=== PATIENT | female | born 1975 | race Caucasian/White ===

== ENCOUNTER 2021-03-14 17:15 | Emergency (ER) | payer OTHER ==
[2021-03-14 18:29] LABS: Absolute Lymphocytes (CBC) 0.9 K/uL (0.7-4.9); Basophils % 0.5 % (0-1.3); Hematocrit 44.3 % (36.0-45.0); Lymphocytes % 15.8 % (15.3-44.8); MPV 7.9 fL (7.6-11.3); RBC Red Blood Cell Count 5.08 M/uL (3.86-4.86)
[2021-03-14 18:48] LABS: Protime INR 1.09
[2021-03-14 18:50] LABS: ALT/SGPT 32 U/L (12-78); AST/SGOT 22 U/L (15-37); Albumin 3.5 g/dL (3.4-5.0); Alkaline Phosphatase 75 U/L (45-117); BUN Blood Urea Nitrogen 5 mg/dL (7-18); Bicarbonate 24 mmol/L (21-32); Bilirubin Direct < 0.1 mg/dL (0-0.2); Bilirubin Total 0.3 mg/dL (0.2-1.0); Creatine Phosphokinase 28 U/L (26-192); Glucose Level 114 mg/dL (74-106); Lipase 75 U/L (73-393); NT PRO-BNP 16 pg/mL (<125); Potassium 3.1 mmol/L (3.5-5.1); Protein, Total 7.2 g/dL (6.4-8.2); Sodium Level 138 mmol/L (136-145); Troponin (Emerg Dept Use Only) < 0.02 ng/mL (0.0-0.045)
[2021-03-14 18:54] LABS: CKMB Creatine Kinase MB < 1.0 ng/mL (1.0-3.6)
--- NOTE | 2021-03-14 19:03 | EDPHYS ---
Physician Documentation [facility] Name: Jennifer Canela Age: 45 yrs Sex: Female : 1975 Arrival Date: 03/14/2021 Time: 17:34 Bed 7 Private MD: ED Physician Damián Santacruz HPI: 03/14 19:12 This 45 yrs old Unknown Female presents to ER via Ambulatory with complaints of tw4 Vomiting, Shortness Of Breath, Covid+. 19:12 The patient presents to the emergency department with nausea, vomiting. Onset: The tw4 symptoms/episode began/occurred today. Associated signs and symptoms: Pertinent positives: sob. The patient has not experienced similar symptoms in the past. 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 Flu vaccine is not up to date. - Social history:: Smoking status: Patient denies any tobacco usage or history of. ROS: 19:12 Constitutional: Negative for fever, chills, and weight loss, Eyes: Negative for injury, tw4 pain, redness, and discharge, Cardiovascular: Negative for chest pain, palpitations, and edema, Back: Negative for injury and pain, MS/Extremity: Negative for injury and deformity. 19:12 Respiratory: Positive for shortness of breath. 19:12 Abdomen/GI: Positive for nausea, vomiting, and diarrhea. Exam: 19:12 Constitutional: This is a well developed, well nourished patient who is awake, alert, tw4 and in no acute distress. Head/Face: Normocephalic, atraumatic. Chest/axilla: Normal chest wall appearance and motion. Nontender with no deformity. No lesions are appreciated. Cardiovascular: Regular rate and rhythm with a normal S1 and S2. No gallops, murmurs, or rubs. Normal PMI, no JVD. No pulse deficits. Respiratory: Lungs have equal breath sounds bilaterally, clear to auscultation and percussion. No rales, rhonchi or wheezes noted. No increased work of breathing, no retractions or nasal flaring. Abdomen/GI: Soft, non-tender, with normal bowel sounds. No distension or tympany. No guarding or rebound. No evidence of tenderness throughout. Back: No spinal tenderness. No costovertebral tenderness. Full range of motion. Skin: Warm, dry with normal turgor. Normal color with no rashes, no lesions, and no evidence of cellulitis. MS/ Extremity: Pulses equal, no cyanosis. Neurovascular intact. Full, normal range of motion. Neuro: Awake and alert, GCS 15, oriented to person, place, time, and situation. Cranial nerves II-XII grossly intact. Motor strength 5/5 in all extremities. Sensory grossly intact. Cerebellar exam normal. Normal gait. Vital Signs: 17:40 BP 123 / 92; Pulse 96; Resp 18 S; Temp 97.1(TE); Pulse Ox 96% on R/A; Weight 70.31 kg ca1 (R); Height 5 ft. 5 in. (165.10 cm) (R); Pain 2/10; 18:20 BP 91 / 67; Pulse 67; Resp 20; Temp 98.6(O); Pulse Ox 97% on R/A; tr6 17:40 Body Mass Index 25.79 (70.31 kg, 165.10 cm) ca1 MDM: 17:49 Patient medically screened. tw4 19:12 Data reviewed: vital signs, nurses notes. Data interpreted: Pulse oximetry: tw4 Interpretation: normal. Counseling: I had a detailed discussion with the patient and/or guardian regarding: the historical points, exam findings, and any diagnostic results supporting the discharge/admit diagnosis. Special discussion: I discussed with the patient/guardian in detail that at this point there is no indication for admission to the hospital. It is understood, however, that if the symptoms persist or worsen the patient needs to return immediately for re-evaluation. 03/14 17:52 Order name: BMP 03/14 17:52 Order name: Blood Culture Adult (2) 03/14 17:52 Order name: CBC with Diff 03/14 17:52 Order name: CPK 03/14 17:52 Order name: Ckmb 03/14 17:52 Order name: Hepatic Function 03/14 17:52 Order name: Lipase 03/14 17:52 Order name: Magnesium 03/14 17:52 Order name: NT PRO-BNP [facility] 03/14 17:52 Order name: PT-INR [facility] 03/14 17:52 Order name: Ptt, Activated [facility] 03/14 17:52 Order name: Troponin (emerg Dept Use Only) [facility] 03/14 17:53 Order name: Blood Culture [facility] 03/14 18:40 Order name: Glucose, Ancillary Testing [facility] 03/14 17:52 Order name: XRAY CXR (1 view) [facility] 03/14 17:52 Order name: Cardiac monitoring; Complete Time: 18:43 [facility] 03/14 17:52 Order name: IV Saline Lock; Complete Time: 18:31 [facility] 03/14 17:52 Order name: Labs collected and sent; Complete Time: 18:31 [facility] 03/14 17:52 Order name: O2 Per Protocol; Complete Time: 18:31 [facility] 03/14 17:52 Order name: O2 Sat Monitoring; Complete Time: 18:31 tw4 Administered Medications: 18:31 Drug: NS 0.9% 1000 ml Route: IV; Rate: 1 bolus; Site: right antecubital; tr6 Disposition Summary: 03/14/21 19:03 Discharge Ordered Location: Home tw4 Problem: new tw4 Symptoms: have improved tw4 Condition: Stable tw4 Diagnosis - Coronavirus infection, unspecified tw4 Followup: tw4 - With: Private Physician - When: Upon discharge from the Emergency Department - Reason: Recheck today's complaints, Continuance of care, Re-evaluation by your physician Discharge Instructions: - Discharge Summary Sheet tw4 - COVID-19 tw4 Forms: - Medication Reconciliation Form tw4 - Thank You Letter tw4 - Antibiotic Education tw4 - Prescription Opioid Use tw4 Prescriptions: - Medrol (Kenneth) 4 mg Oral Tablets, Dose Pack - take 1 tablet by ORAL route as directed - follow package instructions; 1 tw4 packet; Refills: 0, Product Selection Permitted - ProAir HFA - inhale 2 puff by NEBULIZATION route 4 times per day; 1 Pump; Refills: 0, tw4 Product Selection Permitted - Zithromax 200 mg/5 ml Oral Suspension for Reconstitution - take 7.5 milliliters by ORAL route one time for 1 day - then take (5mg/kg/day) tw4 3.8 milliliters by oral route on days 2,3,4, and 5.; 24 milliliter; Refills: 0, Product Selection Permitted Signatures: Dispatcher [employer] Damián Young MD MD tw4 Taty Sigala RN RN ca1 Tayler Manley RN RN tr6 Corrections: (The following items were deleted from the chart) 17:43 17:42 Allergies: No Known Allergies; ca1 ca1
--- NOTE | 2021-03-14 19:03 | ER ---
Nurse's Notes [facility] Name: Jennifer Canela Age: 45 yrs Sex: Female : 1975 Arrival Date: 03/14/2021 Time: 17:34 Bed 7 Private MD: Diagnosis: Coronavirus infection, unspecified Presentation: 03/14 17:40 Chief complaint: Patient states: Covid+ 03/11/2021. S/S getting worse. Weakness, N/V/D, ca1 severe cough, SOB, muscle aches and joint pains. Coronavirus screen: Client reports previous positive COVID test result. Date of collection: March 11, 2021 Staff notified of need for isolation. Ebola Screen: Patient negative for fever greater than or equal to 101.5 degrees Fahrenheit, and additional compatible Ebola Virus Disease symptoms Patient denies exposure to infectious person. Patient denies travel to an Ebola-affected area in the 21 days before illness onset. No symptoms or risks identified at this time. Initial Sepsis Screen: Does the patient meet any 2 criteria? No. Patient's initial sepsis screen is negative. Does the patient have a suspected source of infection? No. Patient's initial sepsis screen is negative. Risk Assessment: Do you want to hurt yourself or someone else? Patient reports no desire to harm self or others. Onset of symptoms was March 11, 2021. 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 Flu vaccine is not up to date. - Social history:: Smoking status: Patient denies any tobacco usage or history of. Screenin:43 Abuse screen: Denies threats or abuse. Denies injuries from another. Nutritional tr6 screening: No deficits noted. Tuberculosis screening: No symptoms or risk factors identified. Fall Risk None identified. Assessment: 18:41 General: Appears distressed, uncomfortable, Behavior is calm, cooperative, appropriate tr6 for age. Pain: Complains of pain in c/o generalized body aches. Neuro: No deficits noted. Cardiovascular: No deficits noted. Respiratory: Denies shortness of breath Parent/caregiver reports the patient having cough that is non-productive. GI: Abdomen is flat, Bowel sounds present X 4 quads. Abd is soft and non tender Reports nausea, vomiting. : No deficits noted. EENT: No deficits noted. Derm: Skin is intact, Skin is clammy. Musculoskeletal: Reports weakness in generalized weakness. 18:56 Reassessment: Patient and/or family updated on plan of care and expected duration. Pain tr6 level reassessed. Vital Signs: 17:40 BP 123 / 92; Pulse 96; Resp 18 S; Temp 97.1(TE); Pulse Ox 96% on R/A; Weight 70.31 kg ca1 (R); Height 5 ft. 5 in. (165.10 cm) (R); Pain 2/10; 18:20 BP 91 / 67; Pulse 67; Resp 20; Temp 98.6(O); Pulse Ox 97% on R/A; tr6 17:40 Body Mass Index 25.79 (70.31 kg, 165.10 cm) ca1 ED Course: 17:34 Patient arrived in ED. bp1 17:42 Triage completed. ca1 17:42 Arm band placed on right wrist. ca1 17:49 Damián Santacruz MD is Attending Physician. tw4 18:05 Tayler Manley, ALYSSA is Primary Nurse. tr6 18:31 Inserted saline lock: 18 gauge in right antecubital area, using aseptic technique. tr6 Blood collected. 18:43 Resting quietly. Appears to be sleeping. Awaiting lab results. tr6 18:43 Patient has correct armband on for positive identification. Bed in low position. Call tr6 light in reach. Side rails up X2. silverware etcher on. Pulse ox on. NIBP on. Door closed. Noise minimized. Visitors limited. Lights dimmed. Moved to private room. Warm blanket given. 18:43 No provider procedures requiring assistance completed. tr6 18:57 XRAY CXR (1 view) In Process Unspecified. EDMS Administered Medications: 18:31 Drug: NS 0.9% 1000 ml Route: IV; Rate: 1 bolus; Site: right antecubital; tr6 Outcome: 19:03 Discharge ordered by . tw4 19:31 Patient left the ED. lp1 Signatures: Dispatcher [employer] EDMS Paty Huff RN RN lp1 Damián Santacruz MD MD tw4 Taty Sigala RN RN ca1 Mariela Hooker Tiffany, RN RN tr6 Corrections: (The following items were deleted from the chart) 17:43 17:42 Allergies: No Known Allergies; ca1 ca1 18:57 10:23 BP 91 / 67; Pulse 67bpm; Resp 20bpm; Pulse Ox 97% RA; Temp 98.6F Oral; tr6 tr6
--- NOTE | 2021-03-14 19:34 | RAD REPORT ---
EXAM DESCRIPTION: Maureen Single View03/14/2021 6:57 pm CLINICAL HISTORY: Shortness of breath COMPARISON: none FINDINGS: The lungs appear clear of acute infiltrate. The heart is normal size IMPRESSION: No acute abnormalities displayed
[2021-03-14 19:48] VITALS: BP 91/67; TEMP 98.6; O2SAT 97
== END 2021-03-14 19:31 | disposition home or self-care (01) ==
LOC: ER 17:15
DX: U07.1 COVID-19 (principal); E03.9 Hypothyroidism, unspecified
CPT/HCPCS: 36415; 71045; 80048; 80076; 82550; 82553; 82947; 83690; 83735; 83880; 84484; 85025; 85610; 85730; 87040; 99284

== ENCOUNTER 2021-03-17 08:48 | Emergency (ER) | payer OTHER ==
[2021-03-17 09:46] LABS: Absolute Lymphocytes (CBC) 0.9 K/uL (0.7-4.9); Basophils % 0.4 % (0-1.3); Hematocrit 39.1 % (36.0-45.0); Lymphocytes % 8.2 % (15.3-44.8); MPV 7.6 fL (7.6-11.3); RBC Red Blood Cell Count 4.53 M/uL (3.86-4.86)
[2021-03-17 09:50] LABS: Protime INR 1.05
[2021-03-17 10:09] LABS: ALT/SGPT 27 U/L (12-78); AST/SGOT 19 U/L (15-37); Albumin 3.2 g/dL (3.4-5.0); Alkaline Phosphatase 64 U/L (45-117); BUN Blood Urea Nitrogen 6 mg/dL (7-18); Bicarbonate 27 mmol/L (21-32); Bilirubin Direct < 0.1 mg/dL (0-0.2); Bilirubin Total 0.3 mg/dL (0.2-1.0); Ferritin 118.3 ng/mL (8-388); Glucose Level 90 mg/dL (74-106); Lipase 147 U/L (73-393); Potassium 3.2 mmol/L (3.5-5.1); Protein, Total 7.3 g/dL (6.4-8.2); Sodium Level 140 mmol/L (136-145); Troponin (Emerg Dept Use Only) < 0.02 ng/mL (0.0-0.045)
[2021-03-17] MEDS ORDERED: dexAMETHasone 10 MG/ML VIAL ONE (10:27)
[2021-03-17] MEDS ORDERED: NA CHLORIDE 0.9% 500 ML ONE (10:28)
[2021-03-17] MEDS ORDERED: LEVALBUTEROL 1.25 MG/3 ML NEB ONE (10:28)
[2021-03-17 10:41] LABS: Blood Morphology Comment NOT SEEN (NOT SEEN); Platelet Estimate ADEQ
[2021-03-17] MEDS ORDERED: NA CHLORIDE 0.9% 100 ML ONE (10:45)
[2021-03-17] MEDS ORDERED: KCL 20 MEQ/100 mL IVPB 20 MEQ/100 ML BAG IV ONE (10:45)
--- NOTE | 2021-03-17 11:03 | RAD REPORT ---
EXAM DESCRIPTION: RAD - Chest Single View - 03/17/2021 10:07 am CLINICAL HISTORY: Congestion;Cough COMPARISON: March 14 TECHNIQUE: AP portable chest image was obtained 03/17/2021 10:07 am . FINDINGS: Lung volumes are diminished compared to the prior study. There is increased opacification at each lung base slightly worse on the left. Finding is partly due to atelectasis. Lung base infiltr ates, particularly the left, suspected but not definitive. No mid or upper lung field acute finding. No failure or volume overload. Heart and vasculature are normal. No measurable pleural effusion and n o pneumothorax. No acute bony abnormality seen. No acute aortic findings suspected. IMPRESSION: Shallow inspiration exam suspicious for left base infiltrate. Correlation is needed with clinical presentation.
--- NOTE | 2021-03-17 11:58 | RAD REPORT ---
EXAM DESCRIPTION: CT - Chest For Pe Angio - 03/17/2021 11:43 am CLINICAL HISTORY: COUGH , COVID positive COMPARISON: No comparisons TECHNIQUE: Dynamically enhanced 3 mm thick images of the chest were obtained during administration o f approximately 150mL Isovue 370 IV contrast. Coronal and oblique MIP reconstruction images were gene rated and reviewed. Exam utilizes a protocol to evaluate the pulmonary arterial tree. All CT scans are performed using dose optimization technique as appropriate and may include automated exposure control or mA/KV adjustment according to patient size. FINDINGS: No pulmonary emboli are identified. The aorta as imaged shows no acute or suspicious finding. No pericardial thickening or effusion. A [id number] amount of peripheral ground-glass opacification present throughout the lung zapata . This is a typical presentation for COVID-19 pneumonia. No cavitation or mass. No pleural effusion o r pleural thickening. A few small mediastinal and hilar reactive type lymph nodes are present. No suspicious finding. No en dobronchial lesions are present. No chest wall masses or abnormal axillary lymphadenopathy. No cardio megaly or pericardial effusion. IMPRESSION: No pulmonary emboli identified. Mild to moderate COVID-19 pneumonia pattern.
[2021-03-17] MEDS ORDERED: CEFTRIAXONE/SWI 1gm 1 GM/10 ML SYR ONE (12:28)
[2021-03-17] MEDS ORDERED: AZITHROMYCIN 250 MG TAB ONE (12:28)
--- NOTE | 2021-03-17 12:38 | EKG ---
Test Date: 2021-03-17 Test Time: 09:44:01 Mobile Home Lot Utility Worker: ERICK MEASUREMENT RESULTS: Intervals: Rate: 76 OR: 152 QRSD: 86 QT: 378 QTc: 425 [place]: P: -3 OR: 152 QRS: 53 T: 8 INTERPRETIVE STATEMENTS: Normal sinus rhythm Normal ECG No previous ECG available for comparison Electronically Signed On 03-17-21 12:37:12 CDT by Christian Bonilla
--- NOTE | 2021-03-17 15:33 | ER ---
Nurse's Notes [facility] Name: Jennifer Canela Age: 45 yrs Sex: Female : 1975 Arrival Date: 03/17/2021 Time: 08:52 Bed 5 Private MD: Clayton Trujillo Diagnosis: Other pneumonia, unspecified organism;Viral pneumonia, unspecified;SARS/COVID Presentation: 03/17 08:57 Chief complaint: Patient states: COVID+ since March 12, was seen here Monday , had IV iw fluids, now is having cough, SOB, increasing weakness, diarrhea, fever. Coronavirus screen: cough unrelated to allergies, diarrhea, fatigue, fever, nausea, shortness of breath, Client reports previous positive COVID test result. Ebola Screen: Patient negative for fever greater than or equal to 101.5 degrees Fahrenheit, and additional compatible Ebola Virus Disease symptoms Patient denies exposure to infectious person. Patient denies travel to an Ebola-affected area in the 21 days before illness onset. No symptoms or risks identified at this time. Initial Sepsis Screen: Does the patient meet any 2 criteria? No. Patient's initial sepsis screen is negative. Does the patient have a suspected source of infection? No. Patient's initial sepsis screen is negative. Risk Assessment: Do you want to hurt yourself or someone else? Patient reports no desire to harm self or others. Onset of symptoms was March 12, 2021. 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 - Social history:: Smoking status: Patient denies any tobacco usage or history of. Screenin:57 Abuse screen: Denies threats or abuse. Denies injuries from another. Nutritional jl7 screening: No deficits noted. Tuberculosis screening: No symptoms or risk factors identified. Fall Risk IV access (20 points). Total Wilson Fall Scale indicates No Risk (0-24 pts). Assessment: 09:05 General: Appears in no apparent distress. uncomfortable, ill, Behavior is cooperative, jl7 anxious. Pain: Denies pain. Neuro: Level of Consciousness is awake, alert, obeys commands, Oriented to person, place, time, situation. Cardiovascular: Patient's skin is warm and dry. Respiratory: Airway is patent Respiratory effort is even, unlabored, Respiratory pattern is regular, symmetrical. Derm: Skin is pink, warm \\T\\ dry. 10:18 Reassessment: Patient appears in no apparent distress at this time. No changes from vg1 previously documented assessment. Patient and/or family updated on plan of care and expected duration. Pain level reassessed. Patient is alert, oriented x 3, equal unlabored respirations, skin warm/dry/pink. Patient denies pain at this time. Musculoskeletal: Circulation, motion, and sensation intact. 11:06 Reassessment: Prior to ambulating pt, pts O2 was 93% RA, during ambulation pt O2 was vg1 91% RA. When returned to room pt stated "I feel a little winded". Pt O2 at rest is 93% RA. Provider notified. 12:17 Reassessment: Patient appears in no apparent distress at this time. Patient and/or vg1 family updated on plan of care and expected duration. Pain level reassessed. Patient is alert, oriented x 3, equal unlabored respirations, skin warm/dry/pink. 13:45 Reassessment: Patient appears in no apparent distress at this time. Patient and/or vg1 family updated on plan of care and expected duration. Pain level reassessed. Patient is alert, oriented x 3, equal unlabored respirations, skin warm/dry/pink. Patient denies pain at this time. 15:03 Reassessment: Patient appears in no apparent distress at this time. No changes from vg1 previously documented assessment. Patient is alert, oriented x 3, equal unlabored respirations, skin warm/dry/pink. Vital Signs: 08:57 BP 136 / 88; Pulse 76; Resp 18; Temp 99.4; Pulse Ox 92% on R/A; Weight 68.04 kg; Height iw 5 ft. 5 in. (165.10 cm); 09:57 BP 138 / 95; Pulse 78; Resp 19; Pulse Ox 93% ; jl7 11:08 BP 133 / 83; Pulse 82; Resp 20; Pulse Ox 94% on R/A; vg1 12:18 BP 141 / 88; Pulse 80; Resp 18; Pulse Ox 92% on R/A; vg1 13:45 BP 142 / 86; Pulse 78; Resp 16; Pulse Ox 95% on R/A; vg1 14:15 BP 142 / 95; Pulse 77; Resp 18; Pulse Ox 95% on R/A; vg1 15:49 BP 150 / 86; Pulse 70; Resp 18; Pulse Ox 95% on R/A; vg1 08:57 Body Mass Index 24.96 (68.04 kg, 165.10 cm) iw ED Course: 08:52 Patient arrived in ED. as 08:52 Clayton Trujillo DO is Private Physician. as 08:59 Marcos Mantilla MD is Attending Physician. kdr 08:59 Triage completed. iw 09:00 Arm band placed on. iw 09:09 Courtney Paz, RN is Primary Nurse. jl7 09:20 First set of blood cultures drawn. Missed attempt(s): 20 gauge in right antecubital jl7 area. Bleeding controlled, band aid applied, catheter tip intact. 09:31 Inserted saline lock: 22 gauge in left antecubital area, using aseptic technique. Blood jl7 collected. 09:31 Initial lab(s) drawn, by me, sent to lab. Second set of blood cultures drawn by me. jl7 09:34 Flu and/or RSV swab sent to lab. Strep swab sent to lab. jl7 09:57 Patient has correct armband on for positive identification. Bed in low position. Call jl7 light in reach. Side rails up X 1. rn surgery on. Pulse ox on. NIBP on. 10:07 CXR XRAY In Process Unspecified. EDMS 11:43 CT Chest For PE Angio In Process Unspecified. EDMS 12:38 Repeat lab(s) drawn. by me, sent to lab. vg1 15:32 Clayton Trujillo DO is Referral Physician. kdr 15:50 No provider procedures requiring assistance completed. IV discontinued, intact, vg1 bleeding controlled, No redness/swelling at site. Pressure dressing applied. Administered Medications: 10:13 Drug: NS 0.9% 500 ml Route: IV; Rate: bolus; Site: left antecubital; vg1 11:00 Follow up: IV Status: Completed infusion; IV Intake: 500ml vg1 10:14 Drug: Dexamethasone 10 mg Route: IVP; Site: left antecubital; vg1 11:00 Follow up: Response: No adverse reaction vg1 10:15 Drug: Xopenex (levalbuterol) (3) 1.25 mg Route: Inhalation; vg1 11:00 Follow up: Response: No adverse reaction; Marked relief of symptoms vg1 11:04 Drug: Potassium Chloride 10 mEq Route: IV; Rate: calculated rate; Site: left vg1 antecubital; 15:22 Follow up: Response: No adverse reaction; IV Status: Completed infusion vg1 12:10 Drug: Rocephin - (cefTRIAXone) 1 grams Route: IVPB; Infused Over: 30 mins; Site: left vg1 antecubital; 13:00 Follow up: Response: No adverse reaction; IV Status: Completed infusion vg1 12:18 Drug: Zithromax (azithromycin) 500 mg Route: PO; vg1 15:22 Follow up: Response: No adverse reaction vg1 Intake: 11:00 IV: 500ml; Total: 500ml. vg1 Outcome: 15:33 Discharge ordered by . kdr 15:50 Discharged to home ambulatory, with family. vg1 15:50 Condition: stable 15:50 Discharge instructions given to patient, Instructed on discharge instructions, follow up and referral plans. medication usage, Demonstrated understanding of instructions, follow-up care, medications, Prescriptions given X 1. 15:50 Patient left the ED. vg1 Signatures: Dispatcher [employer] EDMS Marcos Mantilla MD MD kdr Martinez, Amelia as Williams, Irene, Courtney Palencia RN, RN RN jl7 Cheryl Cárdenas RN RN vg1 Corrections: (The following items were deleted from the chart) 09:57 09:05 BP 138 / 95; Pulse 78bpm; Resp 19bpm; Pulse Ox 93%; seymour ahuja
--- NOTE | 2021-03-17 15:33 | EDPHYS ---
Physician Documentation [facility] Name: Jennifer Canela Age: 45 yrs Sex: Female : 1975 Arrival Date: 03/17/2021 Time: 08:52 Bed 5 Private MD: Ronnie [facility] ED Physician Marcos Mantilla HPI: 03/17 10:17 This 45 yrs old Female presents to ER via Wheelchair with complaints of kdr covid+, symptoms worsening. 10:17 The patient has shortness of breath at rest, with light activity. Onset: The kdr symptoms/episode began/occurred gradually, 10 day(s) ago. Duration: The symptoms are continuous, and are steadily getting worse. The patient's shortness of breath is aggravated by coughing, exertion, light activity, is alleviated by nothing. Associated signs and symptoms: Pertinent positives: non-productive cough, dizziness, nausea, vomiting, diarrhea. Severity of symptoms: At their worst the symptoms were moderate just prior to arrival, in the emergency department the symptoms are unchanged. The patient has not experienced similar symptoms in the past. The patient has been recently seen at the [facility], last week. 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 - Social history:: Smoking status: Patient denies any tobacco usage or history of. ROS: 10:17 Constitutional: Negative for objective fever, chills, and weight loss - subjective kdr febrile Eyes: Negative for injury, pain, redness, and discharge, ENT: Negative for injury, pain, and discharge, Neck: Negative for injury, pain, and swelling, Cardiovascular: Negative for chest pain, palpitations, and edema, Abdomen/GI: Negative for abdominal pain, nausea, vomiting, diarrhea, and constipation, Back: Negative for injury and pain, : Negative for injury, bleeding, discharge, and swelling, MS/Extremity: Negative for injury and deformity, Skin: Negative for injury, rash, and discoloration, Neuro: Negative for headache, weakness, numbness, tingling, and seizure activity. Psych: Negative for depression, anxiety, suicide ideation, homicidal ideation, and hallucinations, Allergy/Immunology: Negative for hives, rash, and allergies, Endocrine: Negative for neck swelling, polydipsia, polyuria, polyphagia, and marked weight changes, Hematologic/Lymphatic: Negative for swollen nodes, abnormal bleeding, and unusual bruising. 10:17 Respiratory: Positive for cough, with no reported sputum, dyspnea on exertion, shortness of breath. Exam: 10:17 Constitutional: This is a well developed, well nourished patient who is awake, alert, kdr and in no acute distress. Head/Face: Normocephalic, atraumatic. Eyes: Pupils equal round and reactive to light, extra-ocular motions intact. Lids and lashes normal. Conjunctiva and sclera are non-icteric and not injected. Cornea within normal limits. Periorbital areas with no swelling, redness, or edema. Neck: Trachea midline, no thyromegaly or masses palpated, and no cervical lymphadenopathy. Supple, full range of motion without nuchal rigidity, or vertebral point tenderness. No Meningismus. Chest/axilla: Normal chest wall appearance and motion. Nontender with no deformity. No lesions are appreciated. Cardiovascular: Regular rate and rhythm with a normal S1 and S2. No gallops, murmurs, or rubs. Normal PMI, no JVD. No pulse deficits. Abdomen/GI: Soft, non-tender, with normal bowel sounds. No distension or tympany. No guarding or rebound. No evidence of tenderness throughout. Back: No spinal tenderness. No costovertebral tenderness. Full range of motion. Skin: Warm, dry with normal turgor. Normal color with no rashes, no lesions, and no evidence of cellulitis. MS/ Extremity: Pulses equal, no cyanosis. Neurovascular intact. Full, normal range of motion. Neuro: Awake and alert, GCS 15, oriented to person, place, time, and situation. Cranial nerves II-XII grossly intact. Motor strength 5/5 in all extremities. Sensory grossly intact. Cerebellar exam normal. Normal gait. Psych: Awake, alert, with orientation to person, place and time. Behavior, mood, and affect are within normal limits. 10:17 Respiratory: the patient does not display signs of respiratory distress, Respirations: normal, Breath sounds: rales, wheezing: that is mild, is heard in the left posterior lower lobe and right posterior lower lobe. 19:12 ECG was reviewed by the Attending Physician. kdr Vital Signs: 08:57 BP 136 / 88; Pulse 76; Resp 18; Temp 99.4; Pulse Ox 92% on R/A; Weight 68.04 kg; Height iw 5 ft. 5 in. (165.10 cm); 09:57 BP 138 / 95; Pulse 78; Resp 19; Pulse Ox 93% ; jl7 11:08 BP 133 / 83; Pulse 82; Resp 20; Pulse Ox 94% on R/A; vg1 12:18 BP 141 / 88; Pulse 80; Resp 18; Pulse Ox 92% on R/A; vg1 13:45 BP 142 / 86; Pulse 78; Resp 16; Pulse Ox 95% on R/A; vg1 14:15 BP 142 / 95; Pulse 77; Resp 18; Pulse Ox 95% on R/A; vg1 15:49 BP 150 / 86; Pulse 70; Resp 18; Pulse Ox 95% on R/A; vg1 08:57 Body Mass Index 24.96 (68.04 kg, 165.10 cm) iw MDM: 10:17 Data reviewed: vital signs, nurses notes, lab test result(s), radiologic studies. kdr Counseling: I had a detailed discussion with the patient and/or guardian regarding: the historical points, exam findings, and any diagnostic results supporting the discharge/admit diagnosis, lab results, radiology results, the need for outpatient follow up. 15:33 Patient medically screened. kdr 03/17 09:08 Order name: BMP; Complete Time: 10:15 kdr 03/17 09:08 Order name: Blood Culture Adult (2) kdr 03/17 09:08 Order name: C-Reactive Protein; Complete Time: 10:15 kdr 03/17 09:08 Order name: CBC with Diff; Complete Time: 11:27 kdr 03/17 09:08 Order name: D-Dimer; Complete Time: 10:15 kdr 03/17 09:08 Order name: Ferritin; Complete Time: 10:15 kdr 03/17 09:08 Order name: Flu; Complete Time: 10:15 kdr 03/17 09:08 Order name: LFT's; Complete Time: 10:15 kdr 03/17 09:08 Order name: Lactate; Complete Time: 10:15 kdr 03/17 09:08 Order name: Lipase; Complete Time: 10:15 kdr 03/17 09:08 Order name: PT-INR; Complete Time: 10:15 kdr 03/17 09:08 Order name: Procalcitonin; Complete Time: 11:27 kdr 03/17 09:08 Order name: Ptt, Activated; Complete Time: 10:15 kdr 03/17 09:08 Order name: Strep; Complete Time: 10:15 kdr 03/17 09:08 Order name: Troponin (emerg Dept Use Only); Complete Time: 10:15 kdr 03/17 09:08 Order name: CXR XRAY; Complete Time: 11:27 kdr 03/17 09:08 Order name: EKG; Complete Time: 09:09 kdr 03/17 10:12 Order name: Throat Culture EDMS 03/17 10:41 Order name: Manual Differential; Complete Time: 11:27 EDMS 03/17 11:29 Order name: CT Chest For PE Angio; Complete Time: 12:47 kdr 03/17 12:54 Order name: Lactate kdr 03/17 12:58 Order name: Lactate Sepsis 2 HR Follow-up; Complete Time: 13:38 EDMS 03/17 09:08 Order name: Cardiac monitoring; Complete Time: 11:15 kdr 03/17 09:08 Order name: Droplet/Contact Precautions; Complete Time: 09:38 kdr 03/17 09:08 Order name: EKG - Nurse/Tech; Complete Time: 11:15 kdr 03/17 09:08 Order name: IV Start; Complete Time: 09:38 kdr 03/17 09:08 Order name: Labs collected and sent; Complete Time: 09:38 kdr 03/17 09:08 Order name: O2 Per Protocol; Complete Time: 09:38 kdr 03/17 09:08 Order name: O2 Sat Monitoring; Complete Time: 09:38 kdr 03/17 09:08 Order name: Urine Dipstick-Ancillary (obtain specimen); Complete Time: 11:15 kdr 03/17 10:15 Order name: VS Recheck: During/Post ambulation; Complete Time: 11:06 kdr EC:12 Rate is 76 beats/min. Rhythm is regular, Normal Sinus Rhythm with No ectopy. QRS [place]ink[place] kdr is Normal. CT interval is normal. QRS interval is normal. QT interval is normal. Clinical impression: Normal ECG. Administered Medications: 10:13 Drug: NS 0.9% 500 ml Route: IV; Rate: bolus; Site: left antecubital; vg1 11:00 Follow up: IV Status: Completed infusion; IV Intake: 500ml vg1 10:14 Drug: Dexamethasone 10 mg Route: IVP; Site: left antecubital; vg1 11:00 Follow up: Response: No adverse reaction vg1 10:15 Drug: Xopenex (levalbuterol) (3) 1.25 mg Route: Inhalation; vg1 11:00 Follow up: Response: No adverse reaction; Marked relief of symptoms vg1 11:04 Drug: Potassium Chloride 10 mEq Route: IV; Rate: calculated rate; Site: left vg1 antecubital; 15:22 Follow up: Response: No adverse reaction; IV Status: Completed infusion vg1 12:10 Drug: Rocephin - (cefTRIAXone) 1 grams Route: IVPB; Infused Over: 30 mins; Site: left 1 antecubital; 13:00 Follow up: Response: No adverse reaction; IV Status: Completed infusion vg1 12:18 Drug: Zithromax (azithromycin) 500 mg Route: PO; vg1 15:22 Follow up: Response: No adverse reaction vg1 Disposition Summary: 03/17/21 15:33 Discharge Ordered Location: Home kdr Problem: an ongoing problem kdr Symptoms: have improved kdr Condition: Stable kdr Diagnosis - Other pneumonia, unspecified organism kdr - Viral pneumonia, unspecified kdr - SARS/COVID kdr Followup: kdr - With: Clayton Trujillo, DO - When: 2 - 3 days - Reason: If symptoms return, Further diagnostic work-up, Recheck today's complaints, Continuance of care, Re-evaluation by your physician Discharge Instructions: - Discharge Summary Sheet kdr - Community-Acquired Pneumonia, Adult kdr - COVID-19 kdr - COVID-19: What Your Test Results Mean - [facility] kdr - COVID-19 Frequently Asked Questions kdr - COVID-19: Quarantine vs. Isolation - [facility] kdr Forms: - Medication Reconciliation Form kdr - Thank You Letter kdr Prescriptions: - Albuterol Sulfate 2.5 mg /3 mL (0.083 %) Inhalation Solution for Nebulization - inhale 1 unit by NEBULIZATION route every 4-6 hours As needed; 1 box; Refills: kdr 0, Product Selection Permitted Signatures: Dispatcher [employer] Marcos Avelar MD MD kdr Williams, Irene, RN RN Cheryl Angel RN RN vg1 Corrections: (The following items were deleted from the chart) :38 09:08 Robert beltran. kdr jl7
[2021-03-17 16:05] VITALS: TEMP 99.4
[2021-03-17 16:20] VITALS: O2SAT 95
[2021-03-17 16:23] VITALS: BP 150/86
== END 2021-03-17 15:50 | disposition home or self-care (01) ==
LOC: ER 08:48
DX: U07.1 COVID-19 (principal); J12.82 Pneumonia due to coronavirus disease 2019; E03.9 Hypothyroidism, unspecified
CPT/HCPCS: 96365; 96361; 93005; 87040 ×2; 87070; 85025; 80048; 36415; 85610; 85379; 80076; 87081; 83605 ×2; 85730; 84484; 82728; 83690; 84145; 86140; 87804 ×2; 71275; 71045; 96375; 99285; 96366; Q9967; J3480; J1100; J0696; J7040

== ENCOUNTER 2022-10-12 11:00 | Emergency (ER) | payer BC, SELFPAY ==
--- NOTE | 2022-10-12 12:27 | RAD REPORT ---
EXAM DESCRIPTION: RAD - Chest Single View - 10/12/2022 12:22 pm CLINICAL HISTORY: CHEST PAIN Chest pain. COMPARISON: Chest Single View dated 03/17/2021; Chest Single View dated 03/14/2021; Chest For Pe Angio dated 03/17/2021 FINDINGS: Portable technique limits examination quality. The lungs are grossly clear. The heart is normal in size. No displaced fractures. IMPRESSION: No acute intrathoracic process suspected.
[2022-10-12 12:28] LABS: Absolute Lymphocytes (CBC) 1.5 K/uL (0.7-4.9); Hematocrit 46.3 % (36.0-45.0); Lymphocytes % 10.9 % (15.3-44.8); MPV 7.8 fL (7.6-11.3); RBC Red Blood Cell Count 5.15 M/uL (3.86-4.86)
[2022-10-12 13:13] LABS: Potassium 3.8 mmol/L (3.5-5.1); Troponin High Sensitivity 9.1 pg/mL (<58.9)
--- NOTE | 2022-10-12 13:58 | ER ---
Nurse's Notes [facility] Name: Jennifer Canela Age: 47 yrs Sex: Female : 1975 Arrival Date: 10/12/2022 Time: 11:01 Bed 6 Private MD: Clayton Trujillo Diagnosis: Essential (primary) hypertension;Chest pain, unspecified Presentation: 10/12 11:07 Chief complaint: Patient states: "I went to urgent care today and they said my blood aa5 pressure was 170/101 and yesterday it was 148/100 at home". Pt reports near syncopal episode Monday night, reports generalized weakness and nausea. Coronavirus screen: At this time, the client does not indicate any symptoms associated with coronavirus-19. Ebola Screen: Patient denies travel to an Ebola-affected area in the 21 days before illness onset. Initial Sepsis Screen: Does the patient meet any 2 criteria? No. Patient's initial sepsis screen is negative. Does the patient have a suspected source of infection? No. Patient's initial sepsis screen is negative. Risk Assessment: Do you want to hurt yourself or someone else? Patient reports no desire to harm self or others. Onset of symptoms was October 2022. 11:07 Acuity: JASMYN 3 aa5 11:07 Method Of Arrival: Ambulatory aa5 Triage Assessment: 11:22 General: Appears in no apparent distress. Behavior is cooperative, appropriate for age, bp anxious. Pain: Denies pain. EENT: No deficits noted. Neuro: Reports a syncopal episode. Cardiovascular: No deficits noted. Respiratory: No deficits noted. GI: No signs and/or symptoms were reported involving the gastrointestinal system. : No signs and/or symptoms were reported regarding the genitourinary system. Derm: No deficits noted. Musculoskeletal: No deficits noted. Historical: - Allergies: 11:05 No Known Allergies; aa5 - Home Meds: 11:05 [place] Thyroid 60 mg Oral tab once daily [Active]; Zomig oral as needed [Active]; aa5 propanolol 10mg daily [Active]; - PMHx: 11:05 Hypothyroidism; Migraine; aa5 - PSHx: 11:05 section; aa5 - Immunization history:: Adult Immunizations unknown. - Social history:: Smoking status: Patient denies any tobacco usage or history of. Screenin:23 [facility] ED Fall Risk Assessment (Adult) History of falling in the last 3 months, bp including since admission No falls in past 3 months (0 pts). Abuse screen: Denies threats or abuse. Denies injuries from another. Nutritional screening: No deficits noted. Tuberculosis screening: No symptoms or risk factors identified. Assessment: 11:23 General: SEE TRIAGE NOTE. bp 14:17 Reassessment: PT DC HOME AMBULATORY. bp Vital Signs: 11:07 BP 186 / 106; Pulse 82; Resp 18 S; Temp 98.0(TE); Pulse Ox 100% on R/A; Weight 70.31 kg aa5 (R); Height 5 ft. 5 in. (165.10 cm) (R); 12:18 BP 152 / 98; Pulse 73; Resp 16; Pulse Ox 98% ; bp 14:16 BP 154 / 95; Pulse 75; Resp 16; Pulse Ox 98% ; bp 11:07 Body Mass Index 25.79 (70.31 kg, 165.10 cm) aa5 ED Course: 11:01 Patient arrived in ED. am2 11:01 Clayton Trujillo DO is Private Physician. am2 11:05 Arm band placed on. aa5 11:08 Triage completed. aa5 11:09 Kelvin Love, RN is Primary Nurse. bp 11:13 Tian Sanz DO is Attending Physician. ms3 11:23 Patient has correct armband on for positive identification. Bed in low position. Call bp light in reach. Side rails up X2. 12:15 Inserted saline lock: 20 gauge in right forearm, using aseptic technique. Blood bp collected. 12:24 XRAY Chest (1 view) In Process Unspecified. EDMS 12:46 Lab(s) recollected, by me, sent to lab. em1 14:17 No provider procedures requiring assistance completed. IV discontinued, intact, bp bleeding controlled, No redness/swelling at site. Pressure dressing applied. Administered Medications: No medications were administered Medication: 11:23 VIS not applicable for this client. bp Outcome: 13:57 Discharge ordered by . ms3 14:17 Discharged to home ambulatory, with family. bp 14:17 Condition: stable 14:17 Discharge instructions given to patient, Instructed on discharge instructions, follow up and referral plans. medication usage, Demonstrated understanding of instructions, follow-up care, medications, Prescriptions given X 1. 14:18 Patient left the ED. bp Signatures: Dispatcher [employer] Sivakumar Lee em1 Nhi Xiao, RN RN aa5 Nina Crawford am2 Kelvin Love, RN RN bp Tian Sanz DO DO ms3
--- NOTE | 2022-10-12 13:58 | EDPHYS ---
Physician Documentation [facility] Name: Jennifer Canela Age: 47 yrs Sex: Female : 1975 Arrival Date: 10/12/2022 Time: 11:01 Bed 6 Private MD: Ronnie [facility] ED Physician Tian Sanz HPI: 10/12 12:23 This 47 yrs old Female presents to ER via Ambulatory with complaints of High Blood ms3 Pressure. 12:23 47-year-old female with past medical history of hypothyroidism and migraine presents ms3 for elevated blood pressure. Patient states triage her blood pressure was 186/101. Patient has noted her blood pressure to be running high since she experienced generalized weakness on Monday. Patient states that she has had mild chest tightness, and intermittent headaches since this time.. Historical: - Allergies: 11:05 No Known Allergies; aa5 - Home Meds: 11:05 [place] Thyroid 60 mg Oral tab once daily [Active]; Zomig oral as needed [Active]; aa5 propanolol 10mg daily [Active]; - PMHx: 11:05 Hypothyroidism; Migraine; aa5 - PSHx: 11:05 section; aa5 - Immunization history:: Adult Immunizations unknown. - Social history:: Smoking status: Patient denies any tobacco usage or history of. ROS: 12:23 Constitutional: Negative for fever, and chills. Neck: Negative for injury, pain, and ms3 swelling, Respiratory: Negative for shortness of breath, cough, wheezing, and pleuritic chest pain, Abdomen/GI: Negative for abdominal pain, nausea, vomiting, diarrhea, and constipation, MS/Extremity: Negative for injury and deformity, Skin: Negative for injury, rash, and discoloration. 12:23 Cardiovascular: Positive for chest pain. 12:23 All other systems are negative. Exam: 12:23 Constitutional: This is a well developed, well nourished patient who is awake, alert, ms3 and in no acute distress. Head/Face: Normocephalic, atraumatic. Neck: Trachea midline, no cervical lymphadenopathy. Supple, full range of motion without nuchal rigidity, or vertebral point tenderness. No Meningismus. Chest/axilla: Normal chest wall appearance and motion. Nontender with no deformity. Cardiovascular: Regular rate and rhythm with a normal S1 and S2. No gallops, murmurs, or rubs. Normal PMI, no JVD. No pulse deficits. Respiratory: Lungs have equal breath sounds bilaterally, clear to auscultation and percussion. No rales, rhonchi or wheezes noted. No increased work of breathing, no retractions or nasal flaring. Abdomen/GI: Soft, non-tender, with normal bowel sounds. No distension or tympany. No guarding or rebound. No evidence of tenderness throughout. Skin: Warm, dry with normal turgor. Normal color with no rashes, no lesions, and no evidence of cellulitis. MS/ Extremity: Pulses equal, no cyanosis. Neurovascular intact. Full, normal range of motion. 12:25 ECG was reviewed by the Attending Physician. ms3 Vital Signs: 11:07 BP 186 / 106; Pulse 82; Resp 18 S; Temp 98.0(TE); Pulse Ox 100% on R/A; Weight 70.31 kg aa5 (R); Height 5 ft. 5 in. (165.10 cm) (R); 12:18 BP 152 / 98; Pulse 73; Resp 16; Pulse Ox 98% ; bp 14:16 BP 154 / 95; Pulse 75; Resp 16; Pulse Ox 98% ; bp 11:07 Body Mass Index 25.79 (70.31 kg, 165.10 cm) aa5 MDM: 11:33 Patient medically screened. ms3 12:23 Differential diagnosis: ACS vs HTN vs Kidney injury. ms3 13:57 Data reviewed: vital signs, nurses notes, lab test result(s), EKG, radiologic studies, ms3 and as a result, I will discharge patient. Consideration of Admission/Observation Escalation of care including admission/observation considered. Chest x-ray negative, troponin negative, EKG without acute ischemia.. Independent interpretation of the following test(s) in the Emergency Department EKG: See my EKG interpretation above X-Ray: My interpretation is X-ray image reviewed by me showing no pneumonia or pneumothorax. . Scoring Tools HEART Score: History: Slightly Suspicious (0) ECG: Normal (0) Age: > 45 and < 65 years (1) Risk Factors: No Risk factors known (0) Troponin: < or = 1 x Normal limit (0) Total Score = 1. Counseling: I had a detailed discussion with the patient and/or guardian regarding: the historical points, exam findings, and any diagnostic results supporting the discharge/admit diagnosis, lab results, radiology results, the need for outpatient follow up, to return to the emergency department if symptoms worsen or persist or if there are any questions or concerns that arise at home. ED course: Discussed labs, chest x-ray, EKG findings with patient and her . Patient to follow-up with primary care physician as discussed. All questions were answered. Return precautions discussed include worsening symptoms, or any other concerns. On reevaluation patient is alert oriented x4, no apparent distress, nontoxic appearing, ambulatory emergency department, speaking full sentences. 10/12 11:32 Order name: Basic Metabolic Panel; Complete Time: 13:17 ms3 10/12 11:32 Order name: CBC with Diff; Complete Time: 12:47 ms3 10/12 11:32 Order name: Troponin HS; Complete Time: 13:17 ms3 10/12 11:32 Order name: XRAY Chest (1 view); Complete Time: 12:47 ms3 10/12 11:32 Order name: EKG; Complete Time: 11:32 ms3 10/12 11:32 Order name: Cardiac monitoring; Complete Time: 12:17 ms3 10/12 11:32 Order name: EKG - Nurse/Tech; Complete Time: 12:17 ms3 10/12 11:32 Order name: IV Saline Lock; Complete Time: 12:17 ms3 10/12 11:32 Order name: Labs collected and sent; Complete Time: 12:17 ms3 10/12 11:32 Order name: O2 Per Protocol; Complete Time: 11:35 ms3 10/12 11:32 Order name: O2 Sat Monitoring; Complete Time: 11:35 ms10/12 12:35 Order name: Labs - recollect needed: recollect green top; Complete Time: 12:46 bd EC:25 Rate is 67 beats/min. Rhythm is regular. Left axis deviation noted. OK interval is ms3 normal. QRS interval is normal. Clinical impression: NSR w/ Non-specific ST/T Changes. Interpreted by me. Reviewed by me. Administered Medications: No medications were administered Disposition Summary: 10/12/22 13:57 Discharge Ordered Location: Home ms3 Condition: Stable ms3 Diagnosis - Essential (primary) hypertension ms3 - Chest pain, unspecified ms3 Discharge Instructions: - Discharge Summary Sheet ms3 - Nonspecific Chest Pain, Adult ms3 - Hypertension, Adult, [id number] ms3 Forms: - Medication Reconciliation Form ms3 - Work release form ap3 - Thank You Letter ms3 - Antibiotic Education ms3 - Prescription Opioid Use ms3 Prescriptions: - losartan 25 mg Oral tablet - take 0.5 tablet by ORAL route once daily; 30 tablet; Refills: 0, Product ms3 Selection Permitted Signatures: Dispatcher [employer] Ashley Sanders Audri, RN RN aa5 Tian Sanz, DO ms3
[2022-10-12 14:27] VITALS: TEMP 98
[2022-10-12 14:32] VITALS: BP 152/98; O2SAT 98
--- NOTE | 2022-10-13 07:57 | EKG ---
Test Date: 2022-10-12 Test Time: 12:00:42 Courier Delivery Driver: BP MEASUREMENT RESULTS: Intervals: Rate: 67 [place]: 160 QRSD: 88 QT: 392 QTc: 414 [place]: P: 50 [place]: 160 QRS: -14 T: 37 INTERPRETIVE STATEMENTS: Sinus rhythm with marked sinus arrhythmia Possible Left atrial enlargement Possible Anterior infarct, age undetermined Abnormal ECG Compared to ECG 03/17/2021 09:44:01 Myocardial infarct finding now present Electronically Signed On 10-13-22 07:54:34 [employer]IP CLEANER by Payam Krueger
== END 2022-10-12 14:18 | disposition home or self-care (01) ==
LOC: ER 11:00
DX: R07.89 Other chest pain (principal); I10 Essential (primary) hypertension; E03.9 Hypothyroidism, unspecified
CPT/HCPCS: 36415; 71045; 80048; 84484; 85025; 93005